=== PATIENT | male | born 1985 | race Caucasian/White ===

== ENCOUNTER → 2018-04-29 | Outpatient (REF) | payer OTHER | LOC: M SFHCLERA 14:22 | DX: J02.9 Acute pharyngitis, unspecified (principal) ==

== ENCOUNTER → 2019-07-30 | Outpatient (CLI) | payer OTHER ==
[~2019-07-30] MED LIST: CYMB60CA3 PO
--- NOTE | 2019-07-30 19:17 | REP ---
Lumbar spine five views: Vertebral body heights and alignment are normal. There is L4-5 disc space narrowing compatible with degenerative disc disease. The disc spaces are otherwise unremarkable. The pedicles, facets and sacroiliac articulations are unremarkable. There is no spondylolysis or spondylolisthesis. Impression: L4-5 degenerative disc disease. Electronically Signed by Maury Rouse MD 07/30/2019 07:08 P
== END ==
LOC: M WUC 11:14
PROVIDERS: ATTEND Nurse Practitioner Family
DX: M54.5 Low back pain (principal)

== ENCOUNTER → 2023-12-15 | Outpatient (CLI) | payer OTHER ==
[~2023-12-15] MED LIST changes: -CYMB60CA3 PO; +CYMB60CA4 PO
== END ==
LOC: M PLAIMG 10:20
PROVIDERS: ATTEND Physician Assistant Surgical
DX: S92.012A Displaced fracture of body of left calcaneus, initial encounter for closed fracture (principal); W18.30XA Fall on same level, unspecified, initial encounter; Y92.009 Unspecified place in unspecified non-institutional (private) residence as the place of occurrence of the external cause